=== PATIENT | male | born 1995 | race Caucasian/White ===

== ENCOUNTER 2019-08-13 20:11 | Emergency (ER) | payer SELFPAY ==
[~2019-08-13] VITALS: Ht 167.6 cm; Wt 62.1 kg
[2019-08-13 20:38] VITALS: BP 153/91; PULSE 127; RESP 18; Ht 167.6 cm; Wt 62.1 kg
== END 2019-08-13 22:36 | disposition left against medical advice (07) ==
LOC: E/R 20:11
DX: Z53.21 Procedure and treatment not carried out due to patient leaving prior to being seen by health care provider (principal)